=== PATIENT | female | born 1985 | race Hispanic/Latino ===

== ENCOUNTER 2019-05-27 14:10 | Outpatient (CLI) | payer MEDICAID ==
--- NOTE | 2019-05-27 15:41 | ULT ---
Exam: Pelvic ultrasound HISTORY: Irregular menstrual cycles and infertility for one year. PCOS. COMPARISON: None TECHNIQUE: Multiple grayscale and color Doppler images were obtained in a transabdominal and transvag inal pelvic ultrasound. Spectral analysis of the Doppler waveforms of the ovaries were performed. FINDINGS: CERVIX: Small nabothian cyst is visualized UTERUS: Normal in size without focal abnormality. ENDOMETRIAL STRIPE: 12 mm which is within normal limits for a normal menstruating female patient. No fluid or fluid collection is seen in the endometrial canal. No free fluid is present. RIGHT OVARY: Normal flow, without focal mass. LEFT OVARY: Normal flow, without focal mass. IMPRESSION: Normal-appearing uterus and bilateral ovaries.
== END 2019-05-27 14:11 | disposition home or self-care (01) ==
LOC: SCSULT 14:10
PROVIDERS: ATTEND Family Medicine
DX: Z31.69 Encounter for other general counseling and advice on procreation (principal)
CPT/HCPCS: 76856

== ENCOUNTER 2024-04-08 19:32 | Emergency (ER) | payer OTHER, SELFPAY ==
[2024-04-08] MEDS ORDERED: Ibuprofen 800 MG TAB ONE (21:39)
[2024-04-08] MEDS ORDERED: Amoxicillin/Potassium Clav 875 MG TAB ONE (21:39)
== END 2024-04-08 22:00 | disposition home or self-care (01) ==
LOC: ERS 19:32
DX: J01.80 Other acute sinusitis (principal); B96.89 Other specified bacterial agents as the cause of diseases classified elsewhere; E11.9 Type 2 diabetes mellitus without complications
CPT/HCPCS: 87081; 87428; 87430; 99284